=== PATIENT | male | born 1945 | race Caucasian/White ===

== ENCOUNTER 2020-11-22 12:04 | Day surgery (SDCO) | payer MEDICARE ==
[~2020-11-22 12:04] MED LIST: AZITHROMYCIN250 MG PO
[2020-11-22 12:53] LABS: BASOPHIL 0.7 % (0-2); EOSINOPHIL 1.5 % (0-7); HCT 45.8 % (42.0-52.0); LYMPHOCYTE 20.4 % (15-48); MCH 31.4 pg (25.0-31.0); MCHC 34.9 g/dL (32.0-36.0); MONOCYTE 10.8 % (0-12); MPV 11.6 fL (6.0-9.5); NEUTROPHIL 66.5 % (41-80); NRBC 0; PLT 228 K/uL (150-400); RBC 5.09 M/uL (4.70-6.00); RDW 12.7 % (11.5-14.0)
[2020-11-22 12:59] LABS: INR 1.29 (0.9-1.2); PROTHROMBIN TIME 15.3 SECONDS (11.4-13.6); PTT 32.2 SECONDS (22.2-34.7)
[2020-11-22 13:04] LABS: ALBUMIN 3.8 g/dL (3.4-5.0); BILIRUBIN - TOTAL 0.6 mg/dL (0.2-1.0); BUN/CREAT RATIO (CALC) 24.7 RATIO; CREATININE 0.77 mg/dL (0.67-1.17); GLOBULIN (CALCULATION) 3.2 g/dL; POTASSIUM 3.5 mmol/L (3.5-5.1)
[2020-11-22 13:16] LABS: CKMB 3.2 ng/mL (0.0-3.6)
[2020-11-22] MEDS ORDERED: AMILORIDE HCL5 MG PO (15:05)
[2020-11-22] MEDS ORDERED: LIPITOR 10MG TA10 MG PO ×2 (15:08→15:11)
[2020-11-22] MEDS ORDERED: BENAZEPRIL HCL20 MG PO (15:11)
[2020-11-22] MEDS ORDERED: VOLTAREN **OUT50 MG PO (15:13)
[2020-11-22] MEDS ORDERED: ELIQUIS5 MG PO (15:15)
[2020-11-22] MEDS ORDERED: HCTZ25 MG PO (15:16)
[2020-11-22] MEDS ORDERED: TOPROL XL 50 MG50 MG PO (15:17)
[2020-11-22] MEDS ORDERED: TAMSULOSIN HCL0.4 MG PO (15:18)
--- NOTE | 2020-11-22 16:39 | NUR ---
HEART MONITOR ALARMING VASHTI AT 39. PT STATES HE HAS HAD A RATE RATE OF 43 BEFORE BUT "NEVER IN THE 30S". PT IS ASYMPTOMATIC AND DR. MOSHER NOTIFIED.
[2020-11-23 06:47] LABS: BASOPHIL 0.7 % (0-2); HCT 44.3 % (42.0-52.0); HGB 15.5 g/dl (13.2-18.0); LYMPHOCYTE 29.1 % (15-48); MCH 31.7 pg (25.0-31.0); MCV 90.6 fL (78.0-100.0); MONOCYTE 10.7 % (0-12); MPV 11.8 fL (6.0-9.5); NEUTROPHIL 56.3 % (41-80); NRBC 0; PLT 220 K/uL (150-400); RBC 4.89 M/uL (4.70-6.00); RDW 12.8 % (11.5-14.0); WBC 8.2 K/uL (4.0-10.5)
[2020-11-23 06:48] LABS: BUN/CREAT RATIO (CALC) 18.3 RATIO; CREATININE 0.82 mg/dL (0.67-1.17); MAGNESIUM 1.8 mg/dL (1.8-2.4); POTASSIUM 3.7 mmol/L (3.5-5.1)
--- NOTE | 2020-11-23 12:37 | NUR ---
PT DISCAHRGED WITH AT BEDSIDE, PT REFUSED WHEELCAHIR AND WANTED TO WALK OUT. PT VERBALIZED UNSDERSTANIG OF DISCAHRGE INSTRUCTIONS.
--- NOTE | 2020-11-23 14:43 | NUR ---
11/23/20 Patient was discharged home with spouse. No discharge services were needed.
== END 2020-11-23 12:39 | disposition home or self-care (01) ==
LOC: FER 12:04 → FTCU 13:56
PROVIDERS: Emergency Medicine; ADMIT Internal Medicine
DX: I24.9 Acute ischemic heart disease, unspecified (principal); I48.20 Chronic atrial fibrillation, unspecified; I25.10 Atherosclerotic heart disease of native coronary artery without angina pectoris; I10 Essential (primary) hypertension; G62.9 Polyneuropathy, unspecified; G47.33 Obstructive sleep apnea (adult) (pediatric); E11.42 Type 2 diabetes mellitus with diabetic polyneuropathy; R55 Syncope and collapse; Z85.46 Personal history of malignant neoplasm of prostate; Z86.718 Personal history of other venous thrombosis and embolism; Z79.01 Long term (current) use of anticoagulants; Z79.899 Other long term (current) drug therapy; Z86.2 Personal history of diseases of the blood and blood-forming organs and certain disorders involving the immune mechanism; Z87.891 Personal history of nicotine dependence; Z96.652 Presence of left artificial knee joint; Z20.822 Contact with and (suspected) exposure to COVID-19; Z98.890 Other specified postprocedural states
CPT/HCPCS: 36415; 71046; 80048; 80053; 82553; 83735; 84484; 85025; 85610; 85730; 93005; 94010; G0378; J7030; U0002

== ENCOUNTER 2021-02-08 09:08 | Emergency (ER) | payer MEDICARE ==
[~2021-02-08 09:08] MED LIST changes: +AMILORIDE HCL5 MG PO; +BENAZEPRIL HCL20 MG PO; +ELIQUIS5 MG PO; +HCTZ25 MG PO; +LIPITOR 10MG TA10 MG PO; +TAMSULOSIN HCL0.4 MG PO; +TOPROL XL 50 MG50 MG PO; +VOLTAREN **OUT50 MG PO
[2021-02-08 09:54] LABS: BILIRUBIN NEGATIVE (NEGATIVE); BLOOD 2+ Ery/uL (NEGATIVE); CLARITY CLEAR (CLEAR); COLOR YELLOW (YELLOW); GLUCOSE (U) NORMAL (NORMAL); LEUKOCYTES NEGATIVE Leu/uL (NEGATIVE); NITRITE NEGATIVE (NEGATIVE); PROTEIN NEGATIVE (NEGATIVE); UROBILINOGEN 0.2 mg/dL (0.2-1.0)
[2021-02-08 09:59] LABS: URINARY WBC RARE
[2021-02-08 10:18] LABS: EOSINOPHIL 1.8 % (0-7); HCT 48.1 % (42.0-52.0); HGB 17.2 g/dl (13.2-18.0); LYMPHOCYTE 18.4 % (15-48); MCHC 35.8 g/dL (32.0-36.0); MCV 89.4 fL (78.0-100.0); MONOCYTE 11.2 % (0-12); MPV 11.1 fL (6.0-9.5); NEUTROPHIL 67.4 % (41-80); NRBC 0; PLT 242 K/uL (150-400); RBC 5.38 M/uL (4.70-6.00); RDW 12.7 % (11.5-14.0); WBC 8.3 K/uL (4.0-10.5)
[2021-02-08 10:43] LABS: BUN/CREAT RATIO (CALC) 20.5 RATIO; CREATININE 0.83 mg/dL (0.67-1.17); GLOBULIN (CALCULATION) 3.7 g/dL; POTASSIUM 2.9 mmol/L (3.5-5.1); TOTAL PROTEIN 7.7 g/dL (6.4-8.2)
[2021-02-08] MEDS ORDERED: FLOMAX0.4 MG PO (11:32)
[2021-02-08] MEDS ORDERED: VENTOLIN HFA IN18 GM INH (11:34)
== END 2021-02-08 13:29 | disposition home or self-care (01) ==
LOC: FER 09:08
PROVIDERS: Emergency Medicine Emergency Medical Services
DX: N40.1 Benign prostatic hyperplasia with lower urinary tract symptoms (principal); R33.8 Other retention of urine; E87.6 Hypokalemia; J21.9 Acute bronchiolitis, unspecified; K40.90 Unilateral inguinal hernia, without obstruction or gangrene, not specified as recurrent; I48.91 Unspecified atrial fibrillation; I10 Essential (primary) hypertension; Z88.8 Allergy status to other drugs, medicaments and biological substances; Z79.899 Other long term (current) drug therapy
CPT/HCPCS: 36415; 80053; 81001; 85025; 87088

== ENCOUNTER 2021-05-09 10:43 | Emergency (ER) | payer MEDICARE ==
[~2021-05-09 10:43] MED LIST changes: +FLOMAX0.4 MG PO; +VENTOLIN HFA IN18 GM INH
[2021-05-09 11:58] LABS: BASOPHIL 0.5 % (0-2); EOSINOPHIL 0 % (0-7); HGB 17.5 g/dl (13.2-18.0); LYMPHOCYTE 17.7 % (15-48); MCH 30.4 pg (25.0-31.0); MCHC 34.3 g/dL (32.0-36.0); MCV 88.5 fL (78.0-100.0); MONOCYTE 15.1 % (0-12); MPV 11.4 fL (6.0-9.5); NEUTROPHIL 66.5 % (41-80); NRBC 0; PLT 244 K/uL (150-400); RBC 5.76 M/uL (4.70-6.00); RDW 12.7 % (11.5-14.0); WBC 9.3 K/uL (4.0-10.5)
[2021-05-09 12:03] LABS: INR 1.34 (0.9-1.2); PROTHROMBIN TIME 15.9 SECONDS (11.8-13.4); PTT 31.4 SECONDS (24.4-34.7)
[2021-05-09 12:13] LABS: PRO-BNP 792 pg/mL (<125)
[2021-05-09 12:20] LABS: ALBUMIN 3.7 g/dL (3.4-5.0); BILIRUBIN - TOTAL 0.7 mg/dL (0.2-1.0); BUN/CREAT RATIO (CALC) 21.6 RATIO; C-REACTIVE PROTEIN 1.7 mg/dL (<=0.90); CREATININE 0.74 mg/dL (0.67-1.17); MAGNESIUM 1.9 mg/dL (1.8-2.4); POTASSIUM 3.2 mmol/L (3.5-5.1); TOTAL PROTEIN 7.7 g/dL (6.4-8.2)
[2021-05-09 12:31] LABS: LACTIC ACID 1.6 mmol/L (0.4-1.9)
[2021-05-09 12:32] LABS: CORONAVIRUS 2019 SARS-COV-2 NEGATIVE (NEGATIVE); INFLUENZA A NAA NEGATIVE (NEGATIVE)
[2021-05-09] MEDS ORDERED: TESSALON PERLE100 M1 PO (17:22)
[2021-05-09] MEDS ORDERED: VIBRAMYCIN100 MG PO (17:22)
[2021-05-09] MEDS ORDERED: PROVENTIL HFA6.7 GM INH (17:22)
== END 2021-05-09 17:43 | disposition home or self-care (01) ==
LOC: FER 10:43
PROVIDERS: Emergency Medicine
DX: J18.9 Pneumonia, unspecified organism (principal); I10 Essential (primary) hypertension; Z20.822 Contact with and (suspected) exposure to COVID-19
CPT/HCPCS: 36415; 71045; 71250; 80053; 82728; 83605; 83615; 83690; 83735; 83880; 84145; 84484; 85025; 85610; 85730; 86140; 87040; 93005; J0696; U0002

== ENCOUNTER 2021-06-06 13:31 | Emergency (ER) | payer MEDICARE ==
[~2021-06-06 13:31] MED LIST changes: +PROVENTIL HFA6.7 GM INH; +TESSALON PERLE100 M1 PO; +VIBRAMYCIN100 MG PO
== END 2021-06-06 18:59 | disposition home or self-care (01) ==
LOC: FER 13:31
DX: M54.50 Low back pain, unspecified (principal); M25.561 Pain in right knee; M25.562 Pain in left knee; M25.551 Pain in right hip; I48.91 Unspecified atrial fibrillation
CPT/HCPCS: 72100; 73502; 73560

== ENCOUNTER 2021-08-19 14:13 | Emergency (ER) | payer MEDICARE ==
[2021-08-19 15:06] LABS: BASOPHIL 0.6 % (0-2); EOSINOPHIL 0.6 % (0-7); HCT 45.1 % (42.0-52.0); HGB 15.5 g/dl (13.2-18.0); LYMPHOCYTE 14.1 % (15-48); MCH 31.4 pg (25.0-31.0); MCHC 34.4 g/dL (32.0-36.0); MCV 91.5 fL (78.0-100.0); MONOCYTE 10.6 % (0-12); NEUTROPHIL 73.8 % (41-80); NRBC 0; PLT 209 K/uL (150-400); RBC 4.93 M/uL (4.70-6.00); RDW 13.2 % (11.5-14.0); WBC 11.5 K/uL (4.0-10.5)
[2021-08-19 15:29] LABS: ALBUMIN 3.7 g/dL (3.4-5.0); BILIRUBIN - TOTAL 0.9 mg/dL (0.2-1.0); BUN/CREAT RATIO (CALC) 21.1 RATIO; CREATININE 0.71 mg/dL (0.67-1.17); GLOBULIN (CALCULATION) 3.4 g/dL; POTASSIUM 3.3 mmol/L (3.5-5.1); TOTAL PROTEIN 7.1 g/dL (6.4-8.2)
[2021-08-19 17:34] LABS: BILIRUBIN NEGATIVE (NEGATIVE); BLOOD NEGATIVE Ery/uL (NEGATIVE); CLARITY CLEAR (CLEAR); COLOR YELLOW (YELLOW); GLUCOSE (U) NORMAL (NORMAL); LEUKOCYTES NEGATIVE Leu/uL (NEGATIVE); NITRITE NEGATIVE (NEGATIVE); PROTEIN NEGATIVE (NEGATIVE); SPECIFIC GRAVITY 1.015 (1.001-1.030); UROBILINOGEN 0.2 mg/dL (0.2-1.0)
== END 2021-08-19 17:54 | disposition home or self-care (01) ==
LOC: FER 14:13
PROVIDERS: Emergency Medicine
DX: K59.00 Constipation, unspecified (principal); R60.9 Edema, unspecified
CPT/HCPCS: 36415; 80053; 81003; 83880; 85025; 93970; Q9967

== ENCOUNTER 2022-02-03 13:19 | Day surgery (SDCO) | payer MEDICARE ==
[~2022-02-03] VITALS: Ht 181.6 cm; Wt 129.9 kg
[2022-02-03 13:48] LABS: BASOPHIL 0.8 % (0-2); HCT 45.9 % (42.0-52.0); HGB 15.8 g/dl (13.2-18.0); LYMPHOCYTE 15.1 % (15-48); MCH 30.9 pg (25.0-31.0); MCHC 34.4 g/dL (32.0-36.0); MCV 89.6 fL (78.0-100.0); NEUTROPHIL 72.3 % (41-80); NRBC 0; PLT 252 K/uL (150-400); RBC 5.12 M/uL (4.70-6.00)
[2022-02-03 13:55] LABS: INR 1.19 (0.9-1.2); PROTHROMBIN TIME 14.7 SECONDS (11.9-13.9); PTT 22.4 SECONDS (24.9-34.6)
[2022-02-03 14:15] LABS: ALBUMIN 3.7 g/dL (3.4-5.0); BILIRUBIN - TOTAL 0.9 mg/dL (0.2-1.0); CREATININE 1.37 mg/dL (0.67-1.17); GLOBULIN (CALCULATION) 2.8 g/dL; POTASSIUM 3.2 mmol/L (3.5-5.1); TOTAL PROTEIN 6.5 g/dL (6.4-8.2)
[2022-02-03 19:20] LABS: MAGNESIUM 2.2 mg/dL (1.8-2.4)
[2022-02-04] MEDS ORDERED: AMLODIPINE BESYL5 MG PO (06:11)
[2022-02-04] MEDS ORDERED: NEURONTIN300 MG PO (06:12)
[2022-02-04] MEDS ORDERED: BENAZEPRIL HCL40 MG PO (06:12)
[2022-02-04 06:29] LABS: BASOPHIL 0.8 % (0-2); EOSINOPHIL 2.4 % (0-7); HCT 44.3 % (42.0-52.0); HGB 14.8 g/dl (13.2-18.0); LYMPHOCYTE 26.2 % (15-48); MCH 30.4 pg (25.0-31.0); MCHC 33.4 g/dL (32.0-36.0); MONOCYTE 11.3 % (0-12); MPV 11.6 fL (6.0-9.5); NEUTROPHIL 58.9 % (41-80); NRBC 0; PLT 222 K/uL (150-400); RBC 4.87 M/uL (4.70-6.00); RDW 13.2 % (11.5-14.0); WBC 9.6 K/uL (4.0-10.5)
[2022-02-04 06:54] LABS: CREATININE 0.85 mg/dL (0.67-1.17); MAGNESIUM 1.9 mg/dL (1.8-2.4); POTASSIUM 3.4 mmol/L (3.5-5.1)
--- NOTE | 2022-02-04 12:48 | NUR ---
Mr. Gentile lives at home with his spouse. He is independent and continues to work. Mr. Gentile was transferred to [facility]
== END 2022-02-04 11:45 | disposition other institution (70) ==
LOC: FER 13:19 → FTCU 15:10
PROVIDERS: Emergency Medicine; ADMIT Internal Medicine
DX: R55 Syncope and collapse (principal); I48.20 Chronic atrial fibrillation, unspecified; I49.5 Sick sinus syndrome; N17.9 Acute kidney failure, unspecified; E87.6 Hypokalemia; I10 Essential (primary) hypertension; I25.10 Atherosclerotic heart disease of native coronary artery without angina pectoris; E11.40 Type 2 diabetes mellitus with diabetic neuropathy, unspecified; G47.33 Obstructive sleep apnea (adult) (pediatric); Z20.822 Contact with and (suspected) exposure to COVID-19; Z85.46 Personal history of malignant neoplasm of prostate; Z92.3 Personal history of irradiation; F17.210 Nicotine dependence, cigarettes, uncomplicated; Z79.01 Long term (current) use of anticoagulants; Z79.899 Other long term (current) drug therapy; Z88.8 Allergy status to other drugs, medicaments and biological substances; Z82.49 Family history of ischemic heart disease and other diseases of the circulatory system
CPT/HCPCS: 36415; 71045; 80048; 80053; 83735; 83880; 84443; 84484; 85025; 85610; 85730; 93005; G0378; J7030; U0002

== ENCOUNTER 2022-02-17 22:02 | Day surgery (SDCO) | payer MEDICARE ==
[~2022-02-17] VITALS: Ht 180.3 cm; Wt 127.7 kg
[~2022-02-17 22:02] MED LIST changes: +AMLODIPINE BESYL5 MG PO; +BENAZEPRIL HCL40 MG PO; +NEURONTIN300 MG PO
[2022-02-17 23:10] LABS: BASOPHIL 0.8 % (0-2); EOSINOPHIL 14.1 % (0-7); HCT 47.5 % (42.0-52.0); HGB 16.3 g/dl (13.2-18.0); LYMPHOCYTE 19.6 % (15-48); MCH 30.4 pg (25.0-31.0); MCHC 34.3 g/dL (32.0-36.0); MCV 88.5 fL (78.0-100.0); MONOCYTE 12.7 % (0-12); MPV 11.2 fL (6.0-9.5); NEUTROPHIL 52.6 % (41-80); NRBC 0; PLT 228 K/uL (150-400); RBC 5.37 M/uL (4.70-6.00); WBC 9.8 K/uL (4.0-10.5)
[2022-02-17 23:16] LABS: INR 1.22 (0.9-1.2); PTT 29.5 SECONDS (24.9-34.6)
[2022-02-17 23:23] LABS: ALBUMIN 3.8 g/dL (3.4-5.0); BILIRUBIN - TOTAL 0.6 mg/dL (0.2-1.0); BUN/CREAT RATIO (CALC) 22.4 RATIO; CREATININE 0.76 mg/dL (0.67-1.17); GLOBULIN (CALCULATION) 3.5 g/dL; POTASSIUM 3.3 mmol/L (3.5-5.1); TOTAL PROTEIN 7.3 g/dL (6.4-8.2)
[2022-02-17 23:49] LABS: CORONAVIRUS 2019 SARS-COV-2 NEGATIVE (NEGATIVE); INFLUENZA A NAA NEGATIVE (NEGATIVE)
[2022-02-18 01:48] LABS: BILIRUBIN NEGATIVE (NEGATIVE); BLOOD NEGATIVE Ery/uL (NEGATIVE); CLARITY CLEAR (CLEAR); COLOR YELLOW (YELLOW); GLUCOSE (U) NORMAL (NORMAL); LEUKOCYTES NEGATIVE Leu/uL (NEGATIVE); NITRITE NEGATIVE (NEGATIVE); PROTEIN NEGATIVE (NEGATIVE); UROBILINOGEN 0.2 mg/dL (0.2-1.0)
[2022-02-18] MEDS ORDERED: TOPROL XL 50 MG50 MG PO (04:02)
[2022-02-18] MEDS ORDERED: KLOR-CON M2020 MEQ PO (04:04)
[2022-02-18] MEDS ORDERED: FLOMAX0.4 MG PO (04:05)
[2022-02-18] MEDS ORDERED: NEURONTIN300 MG PO (04:05)
[2022-02-18] MEDS ORDERED: LASIX40 MG PO (04:06)
[2022-02-18] MEDS ORDERED: HCTZ25 MG PO (04:06)
[2022-02-18] MEDS ORDERED: LIPITOR 10MG TA10 MG PO (04:07)
[2022-02-18] MEDS ORDERED: DICLOFENAC SOD100 MG PO (04:09)
[2022-02-18] MEDS ORDERED: NORVASC5 MG PO (04:10)
[2022-02-18] MEDS ORDERED: ELIQUIS5 MG PO (04:11)
[2022-02-18] MEDS ORDERED: BENAZEPRIL HCL20 MG PO (04:11)
[2022-02-18] MEDS ORDERED: VENTOLIN HFA IN18 GM INH (04:12)
[2022-02-18] MEDS ORDERED: ASPIRIN EC81 MG PO (04:13)
[2022-02-18 06:47] LABS: BUN/CREAT RATIO (CALC) 20.6 RATIO; CREATININE 0.68 mg/dL (0.67-1.17); POTASSIUM 3.3 mmol/L (3.5-5.1)
[2022-02-19 06:25] LABS: HCT 44.6 % (42.0-52.0); HGB 15.2 g/dl (13.2-18.0); MCH 30.5 pg (25.0-31.0); MCHC 34.1 g/dL (32.0-36.0); MCV 89.6 fL (78.0-100.0); MPV 11.3 fL (6.0-9.5); RBC 4.98 M/uL (4.70-6.00); RDW 13.5 % (11.5-14.0)
[2022-02-19 06:28] LABS: WBC 22.6 K/uL (4.0-10.5)
[2022-02-19 06:51] LABS: BUN/CREAT RATIO (CALC) 22.8 RATIO; CREATININE 0.79 mg/dL (0.67-1.17); POTASSIUM 3.5 mmol/L (3.5-5.1)
[2022-02-19] MEDS ORDERED: PREDNISONE 20MG20 MG PO (10:12)
[2022-02-19] MEDS ORDERED: LASIX40 MG PO (10:12)
[2022-02-19] MEDS ORDERED: MUCINEX 600MG600 MG PO (10:12)
[2022-02-19] MEDS ORDERED: PROMETHAZINE/C120 ML PO (10:12)
== END 2022-02-19 11:08 | disposition home or self-care (01) ==
LOC: FER 22:02 → FMS 02-18 01:43
PROVIDERS: Family Medicine; Internal Medicine; Nurse Practitioner Acute Care; ADMIT Internal Medicine
DX: J20.9 Acute bronchitis, unspecified (principal); E66.9 Obesity, unspecified; R73.9 Hyperglycemia, unspecified; E87.6 Hypokalemia; I11.0 Hypertensive heart disease with heart failure; I50.33 Acute on chronic diastolic (congestive) heart failure; R60.0 Localized edema; I48.20 Chronic atrial fibrillation, unspecified; I16.0 Hypertensive urgency; M54.2 Cervicalgia; J98.11 Atelectasis; G62.9 Polyneuropathy, unspecified; E78.5 Hyperlipidemia, unspecified; Z20.822 Contact with and (suspected) exposure to COVID-19; Z87.891 Personal history of nicotine dependence; Z88.0 Allergy status to penicillin; Z88.8 Allergy status to other drugs, medicaments and biological substances
CPT/HCPCS: 36415; 71045; 71250; 80048; 80053; 81003; 83036; 83880; 84145; 84484; 85025; 85610; 85730; 86140; 93005; 94010; 94640; 94667; 94668; 94760; G0378; J1100; J1940; J2930; J3475; J7512; U0002